=== PATIENT | male | born 1960 | race Caucasian/White ===

== ENCOUNTER 2023-11-21 08:30 | Observation (INO) ==
--- NOTE | 2023-10-31 10:31 | PAT Medication Instructions ---
Medication Instructions Date of Service October 31, 2023 Home Medications Medication Instructions Recorded flash glucose scanning reader #1 ea 07/21/22 (FreeStyle Blanquita 2 [place]) flash glucose sensor (FreeStyle #2 ea 07/29/22 Blanquita 2 Sensor kit) tirzepatide 15 mg/0.5 mL 15 mg (0.5 mL) subcut Q7D #6 mL 03/31/23 subcutaneous pen injector (Mounjaro) metformin 1,000 mg tablet 1,000 mg PO BID 90 days #180 tabs 08/11/23 oxycodone 5 mg tablet 5 mg PO Q8H PRN pain #30 tabs 10/06/23 walker #1 ea 10/12/23 tirzepatide 15 mg/0.5 mL subcutaneous pen injector (Mounjaro) 15 mg (0.5 mL) subcut Q7D metformin 1,000 mg tablet 1,000 mg PO BID oxycodone 5 mg tablet 5 mg PO Q8H PRN Joint Food Supplement 1 tab PO BID atorvastatin 40 mg tablet 40 mg PO HS duloxetine 60 mg capsule,delayed release 60 mg PO QAM empagliflozin 25 mg tablet (Jardiance) 25 mg PO QAM lisinopril 10 mg tablet 10 mg PO HS STOP 7 days before surgery tirzepatide 15 mg/0.5 mL subcutaneous pen injector (Mounjaro) 15 mg (0.5 mL) subcut Q7D STOP 3 days before surgery empagliflozin 25 mg tablet (Jardiance) 25 mg PO QAM STOP taking 2 weeks before surgery (or as soon as possible if surgery is within 2 weeks) Joint Food Supplement 1 tab PO BID DO NOT take the morning of surgery metformin 1,000 mg tablet 1,000 mg PO BID Take morning of surgery With a small sip of water, OTHERWISE NOTHING TO EAT OR DRINK AFTER MIDNIGHT: oxycodone 5 mg tablet 5 mg PO Q8H PRN(if needed) duloxetine 60 mg capsule,delayed release 60 mg PO QAM Take evening before surgery metformin 1,000 mg tablet 1,000 mg PO BID oxycodone 5 mg tablet 5 mg PO Q8H PRN(if needed) atorvastatin 40 mg tablet 40 mg PO HS lisinopril 10 mg tablet 10 mg PO HS Other Notes If you have any questions please call us at [phone] or [phone] or [phone] or [phone]
--- NOTE | 2023-11-07 11:00 | Anesthesiology Consultation ---
Date of Service November 07, 2023 Assessment & Plan (1) Encounter for pre-operative examination: - check BSG am DOS. - Case discussed in detail with Dr. Cruz who advised patient will need cardiology pre-operative evaluation regarding abnormal EKG and new T wave inversion in setting of not well controlled diabetes. Patient made aware, he prefers earliest availability-our team will try [place] cardiology first and loan secretary will then follow-up with patient. He is aware we are also awaiting PCP clearance and surgeon's determination regarding elevated A1c. Surgeon's office made aware of needed cardiology clearance as well. Workload note sent to PCP. - PCP response 11/08/23: "...Thank you for reaching out. I think his diabetes is actually optimized for surgery. His glucose levels have been actually quite good, last month glucose was 139 mg/dl. I think his Hgb a1c of 8.8% may be misleading and may not actually reflect his his accurate glycemic control. He is on significant medication regimen with max dosing of Metformin, Mounjaro, and Jardiance. We did discuss sulfonylurea but I think this would only cause hypoglycemia. I don't think we would see any significant benefit in repeating the Hgb a1c now. I don't think he needs any further evaluation or testing for his Dm2. He is due for urine micro albumin testing this year which he has yet to do, last years was normal. I don't think this would have much consequence in being completed prior to procedure. Thank you for setting up the Cardiology referral..." - tirzepatide instructions: Patient informed at PAT visit to stop 7 days prior to surgery- voiced understanding. Patient advised to check with prescriber to see if alternative diabetic management changes recommended while holding tirzepatide- if so, patient to call back to PAT to update chart and discuss if any further preop medication instructions needed. Chart Review Chart Review: Pending: Refer to Additional Notes / Consult section and Patient seen in Pre Admission Testing Teaching & Discussion Pre-Anesthesia Teaching/Discussion Notes: Instructed NPO after midnight before s urgery, except medications with 15 cc of water. Medication instructions provided according to the PAT guidelines. History Surgery Operation Date: 11/21/23 10:40 Proposed Procedures p Left Total Hip Arthroplasty - Aron Cazares MD Height/Weight Height: 5 ft 8 in Weight: 76.3 kg Allergies Allergy/AdvReac Type Severity Reaction Status Date / Time No Known Allergies Allergy Verified 10/27/23 08:26 Medications Home Medications Medication Instructions Recorded Confirmed Last Taken flash glucose scanning reader #1 ea 07/21/22 10/06/23 Unknown (FreeStyle Blanquita 2 [place]) flash glucose sensor (FreeStyle #2 ea 07/29/22 10/06/23 Unknown Blanquita 2 Sensor kit) tirzepatide 15 mg/0.5 mL 15 mg (0.5 mL) subcut Q7D #6 mL 03/31/23 10/27/23 10/22/23 subcutaneous pen injector (Xavier) metformin 1,000 mg tablet 1,000 mg PO BID 90 days #180 tabs 08/11/23 10/27/23 Unknown oxycodone 5 mg tablet 5 mg PO Q8H PRN pain #30 tabs 10/06/23 10/27/23 Unknown walker #1 ea 10/12/23 Unknown Joint Food Supplement 1 tab PO BID 10/27/23 10/27/23 Unknown atorvastatin 40 mg tablet 40 mg PO HS 10/27/23 10/27/23 Unknown duloxetine 60 mg capsule,delayed 60 mg PO QAM 10/27/23 10/27/23 Unknown release empagliflozin 25 mg tablet 25 mg PO QAM #90 tabs 11/06/23 Unknown (Jardiance) lisinopril 10 mg tablet 10 mg PO HS #90 tabs 11/06/23 Unknown Past Medical History Medical History (Updated 11/07/23 @ 11:09 by Sarai Navarro PA-C) Anxiety Depression Diabetes mellitus, type 2 NIDDM HTN (hypertension) Controlled, stable per pt Patient denies h/o stroke, seizures, heart attack, heart failure, blood clots/DVTs or blood transfusions. Exercise / Class Metabolic Activity II 4-5 Yardwork/Stairs/Walk up hill (denies chest discomfort or shortness of breath with one flight of stairs, ambulates with cane) Past Family History Family History Mother Ovarian cancer Denies family history of Prostate cancer Myocardial infarction Breast cancer Lung cancer Colorectal cancer Hypertension Past Surgical History Surgical History (Updated 11/07/23 @ 11:09 by Sarai Navarro PA-C) H/O removal of cyst Sebaceous Cyst Neck History of eye surgery Removed nail from Left eye >30+ years ago History of hydrocelectomy [facility] left History of repair of rotator cuff Left Hx of colonoscopy Past Anesthesia History No Hx of Anesthesia Complications and No Family Hx of Anesthesia Complications History of PONV No Hx of PONV and No Hx of Motion Sickness Social History Smoking Status: Never smoker Do You Dip or Chew Tobacco: No Hx Alcohol Use: No Hx Substance Use: No substance use type: does not use Review of Systems Patient denies chest pain, shortness of breath, dyspnea on exertion, snoring, witnessed apneas, reflux, fever, chills, cough, wheezing, or palpitations. Physical Exam Vital Signs Vitals BP 108/65 P 98 TEMP 97.7 SP02 95% on RA RESP 18 Physical Patient resting comfortably in chair in no acute distress, alert and oriented, responding appropriately throughout visit Full cervical extension range of motion without pain TMD 3.5 finger breadths Mallampati Score 3 Dentition: several crowns, denies chipped or loose teeth, caps, implants or bridges Lungs: normal respiratory effort. Good air movement, clear throughout to auscultation, no adventitious breath sounds Cardiac: regular rate and rhythm, no murmurs noted Carotid arteries: negative bruit bilat Lab Results Anesthesia Preop Results Results Anesthesia Widget: WBC 7.01 K/ul (4.8-10.8) 11/07/23 Hgb 15.5 g/dl (14.0-18.0) 11/07/23 Hct 45.8 % (42.0-52.0) 11/07/23 Plt 246 K/uL (130-400) 11/07/23 Na 138 mmol/L (136-145) 10/02/23 K 3.6 mmol/L (3.5-5.1) 10/02/23 Cl 103 mmol/L (98-107) 10/02/23 CO2 26 mmol/L (21-32) 10/02/23 BUN 12 mg/dl (6-23) 10/02/23 Creat 0.69 mg/dl (0.6-1.4) 10/02/23 Glucose Level 139 mg/dl (70-99(Fasting)) H 10/02/23 PT 10.2 Seconds (9.0-12.0) 11/07/23 PTT 25 Seconds (21-31) 11/07/23 INR 0.9 (0.9-1.1) 11/07/23 HA1c 8.8 % (4.5-5.6) H 10/02/23 Blood Type O Negative 11/07/23 Antibody Screen NEGATIVE 11/07/23 Testing Laboratory Results Patient declined updating A1c for potential improvement as he notes was recently on vacation. He was advised PCP clearance will be needed in addition to surgeon determination on elevated A1c. Surgeon's office made aware. Electrocardiogram Date: 11/07/23 NSR, rate 84 bpm Inferior infarct, cited on or before 01/10/14 Questionable change in QRS axis T wave inversion now evident in inferior leads vs 11/22/17 EKG Chest X-Ray Date: 11/07/23 No acute chest disease.
--- NOTE | 2023-11-19 20:05 | History & Physical Report ---
Date of Service November 19, 2023 Assessment & Plan (1) Arthritis of left hip: 63-year-old gentleman with advanced left hip DJD. He has progressed significantly despite conservative care. He is ready to have his hip fixed. There is cements of total hip replacement were explained and he understands and desires to proceed. Informed consent was obtained. He had an extensive workup and is got some cardiac tests which are pending. Assuming he is cleared for surgery we will proceed with a total hip replacement. If not he may need surgical/presurgical optimization by the cone picker. Will get the definitive cardiac workup and proceed if cleared for surgery. He is planned to be in the hospital overnight and discharged to home with home health. He will likely need insulin sliding scale coverage in the hospital for his diabetes. (2) Class 1 obesity due to excess calories with serious comorbidity and body mass index (BMI) of 31.0 to 31.9 in adult: (3) Hypertension: (4) Diabetes mellitus, type 2: History of Present Illness Chief Complaint: . Left hip pain Primary Care Provider: Nir Bass DO . The patient is a 63-year-old gentleman referred by my partner Dr. Duran for surgical treatment of the left hip. He is got several history of increasing left hip pain and discomfort is got singly worse over time. He is actually resorted to using a cane to get around due to his pain. He has an intra- articular hip joint injection which helped him for a very brief period of time. He had a bursal injection which did not help at all. Pain is mostly groin pain. He limps all day long. Knees at nighttime pain. He is like to have his hip fixed. Allergies Allergy/AdvReac Type Severity Reaction Status Date / Time No Known Allergies Allergy Verified 11/17/23 08:42 Home Medications Medication Instructions Recorded Confirmed Type flash glucose scanning reader #1 ea 07/21/22 10/06/23 Rx (FreeStyle Blanquita 2 [place]) flash glucose sensor (FreeStyle #2 ea 07/29/22 10/06/23 Rx Blanquita 2 Sensor kit) tirzepatide 15 mg/0.5 mL 15 mg (0.5 mL) subcut Q7D #6 mL 03/31/23 11/17/23 Rx subcutaneous pen injector (Xavier) metformin 1,000 mg tablet 1,000 mg PO BID 90 days #180 tabs 08/11/23 11/17/23 Rx oxycodone 5 mg tablet 5 mg PO Q8H PRN pain #30 tabs 10/06/23 11/17/23 Rx walker #1 ea 10/12/23 Rx Joint Food Supplement 1 tab PO BID 10/27/23 11/17/23 History atorvastatin 40 mg tablet 40 mg PO HS 10/27/23 11/17/23 History duloxetine 60 mg capsule,delayed 60 mg PO QAM 10/27/23 11/17/23 History release empagliflozin 25 mg tablet 25 mg PO QAM #90 tabs 11/06/23 11/17/23 Rx (Jardiance) lisinopril 10 mg tablet 10 mg PO HS #90 tabs 11/06/23 11/17/23 Rx acetaminophen 500 mg tablet 1,000 mg (2 x 500 mg) PO TID pain 11/19/23 Rx (Tylenol Extra Strength) 30 days #180 tabs aspirin 81 mg tablet,delayed 81 mg PO BID 45 days #90 tabs 11/19/23 Rx release (Maxine Low Dose Aspirin) ketorolac 10 mg tablet 10 mg PO Q6 pain 5 days #20 tabs 11/19/23 Rx ondansetron 4 mg disintegrating 4 mg PO Q8 PRN nausea #20 tabs 11/19/23 Rx tablet oxycodone 5 mg tablet 5 - 10 mg (1 - 2 x 5 mg) PO Q6 PRN 11/19/23 Rx pain #40 tabs sennosides 8.6 mg tablet (Senokot) 8.6 mg PO BID prevent constipation 11/19/23 Rx 14 days #28 tabs tamsulosin 0.4 mg capsule (Flomax) 0.4 mg PO DAILY #7 caps 11/19/23 Rx Past Med/Surg History Problem List Encounter for pre-operative examination Arthritis of left hip Hip arthritis Greater trochanteric pain syndrome Class 1 obesity due to excess calories with serious comorbidity and body mass index (BMI) of 31.0 to 31.9 in adult Bilateral hip pain Anxiety and depression Fatigue Diabetic peripheral neuropathy associated with type 2 diabetes mellitus (Chronic) Dysesthesia (Chronic) Foot deformity (Chronic) Loss 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) 12/13/18 DJD (degenerative joint disease) (Chronic 02/05/14) Hypertension (Chronic) Medical History HTN (hypertension) Controlled, stable per pt Anxiety Diabetes mellitus, type 2 NIDDM Depression Surgical History Hx of colonoscopy History of hydrocelectomy [facility] left History of eye surgery Removed nail from Left eye >30+ years ago H/O removal of cyst Sebaceous Cyst Neck History of repair of rotator cuff Left Family History Mother Ovarian cancer Denies family history of Prostate cancer Myocardial infarction Breast cancer Lung cancer Colorectal cancer Hypertension Social History Smoking Status: Never smoker Second Hand Exposure: No; Do You Dip or Chew Tobacco: No; Hx Alcohol Use: No Hx Substance Use: No Preferred Language: Thai Communication Ability: Effective Band Saw Filer Required: No Beliefs That Will Affect Care: None marital status: Current Living Situation: Spouse current occupational status: employed current occupation: [employer] @ [employer] Feels Safe at Home: Yes Diet: regular caffeine: Yes Physical Activity Frequency: 5-6 Times per Week Seatbelt Use: never Sunscreen Use: Yes Assistive Devices: Cane and Glasses Review of Systems All systems reviewed & are unremarkable except as noted in HPI & below. Physical Exam . Physical examination reveals a pleasant middle-age male. Looks in pretty good health. Examination left hip reveal patient walks with use of a cane. He can walk independently but limps significantly. He is about a half a centimeter shorter on the left side compared to the right. Is got pain with any type of hip motion. Very stiff hip with internal rotation of -10. Negative straight leg raise. He is neurologically intact. Constitutional WD/WN, vitals as above Neck trachea midline, no thyromegaly Respiratory normal respiratory effort, lungs clear to auscultation Cardiovascular RRR, no murmur, no edema Gastrointestinal (Abdomen) normal bowel sounds, soft, nontender, no hepatosplenomegaly Results & Data Results & Data Laboratory Results . Diagnostic Findings . X-rays of the left hip were reviewed. Shows advanced left hip DJD. He is got complete loss of superior joint space. Flattening of the femoral head. He is got cystic changes on both sides of the joint. PG Care Time/CCT Total # of Minutes Spent Total Time Spent with Patient: Total time spent is greater than 50% in coordination of care (as documented) at patient's floor/unit and/or counseling patient: Coding Level of Care Code None Diagnoses Arthritis of left hip M16.12 Class 1 obesity due to excess calories with serious comorbidity and body mass index (BMI) of 31.0 to 31.9 in adult E66.09; Z68.31 Primary hypertension I10 Hypertension type: primary hypertension Diabetes mellitus, type 2 E11.9 (3) Hypertension Hypertension type: primary hypertension Qualified Code(s): I10 - Essential (primary) hypertension
[~2023-11-21 08:30] MED LIST: BUPIVACAINE 0.5 % 5 MG/1 ML PF 10ML VIAL ONE
[2023-11-21] MEDS: FAMOTIDINE 20 MG TAB PO SCH (09:03)
[2023-11-21] MEDS: CeleBREX 200 MG CAP PO SCH (09:03)
[2023-11-21] MEDS: LR 500ML BOLUS, THEN 15ML/HR IV SCH (09:03)
[2023-11-21] MEDS: ACETAMINOPHEN 500 MG TAB PO SCH ×2 (09:03→16:05)
[2023-11-21] MEDS: LR 60ML/HR IV SCH (09:03)
[2023-11-21] MEDS: METOCLOPRAMIDE HCL 10 MG TABLET PO SCH (09:04)
--- NOTE | 2023-11-21 09:28 | History & Physical Bridge Note ---
Date of Service November 21, 2023 History & Physical Bridge Note I have examined the patient, reviewed the History & Physical and in the interval since the performance of the History & Physical I have noted the following changes of clinical significance: no changes noted
[2023-11-21] MEDS ORDERED: MIDAZOLAM HCL 1 MG/ML 2ML VIAL ONE (10:14)
[2023-11-21] MEDS ORDERED: fentaNYL citrate PF 100 MCG/2 ML VIAL ONE (10:14)
[2023-11-21] MEDS ORDERED: ATROPINE SULFATE 0.1 MG/ML 10ML SYR IV PRN (10:16)
[2023-11-21] MEDS ORDERED: ePHEDrine sulfate 50 MG/ML AMP IV PRN (10:16)
[2023-11-21] MEDS ORDERED: ONDANSETRON INJ 2 MG/ML 2 ML VIAL IV PRN ×2 (10:16→14:31)
[2023-11-21] MEDS ORDERED: PROPOFOL IV EMULSION 10 MG/ML 20 ML VIAL IV ONE (10:16)
[2023-11-21] MEDS ORDERED: fentaNYL citrate PF 100 MCG/2 ML VIAL IV PRN (10:16)
[2023-11-21] MEDS ORDERED: ONDANSETRON INJ 2 MG/ML 2 ML VIAL ONE (10:16)
[2023-11-21] MEDS: TRANEXAMIC ACID 1,000 MG **IV Pre-op IV SCH (11:13)
[2023-11-21] MEDS: ceFAZolin 2000MG 2,000 MG/15 ML SYR IV SCH (11:26)
[2023-11-21] MEDS ORDERED: PHENYLEPHRINE 100MCG/ML 10ML SYR IV ONE (11:54)
[2023-11-21] MEDS: BUPIVACAINE/EPINEPHRINE 0.5% MPF 1:200,000 30 ML VIAL ONE (12:08)
[2023-11-21] MEDS ORDERED: PHENYLEPHRINE HCL 10 MG/ML VIAL ONE (12:12)
--- NOTE | 2023-11-21 13:03 | Operative Report ---
PG Post Operative Report Pre & Post Diagnosis Operation Date: 11/21/23 10:40 Pre-Op Diagnosis: Left Hip Osteoarthritis Post-Op Diagnosis: Left Hip Osteoarthritis I identified the patient and participated in the time-out.: Yes Procedure Operation Date: 11/21/23 10:40 Actual Procedures p Left Total Hip Arthroplasty, Uncemented(Left) - Aron Cazares MD Surgeon Aron Cazares MD Dictating Machine Mechanic Wayne Monroe PA-C Estimated Blood Loss 150 Findings Consistent with Post-Op Diagnosis Operative findings were advanced left hip arthritis. He had grade 4 [id number] disease the femoral head and acetabulum. He had flattening of the femoral head. Very hypertrophic labrum. Specimens Left femoral head sent for pathology. Anesthesia Type Spinal MAC Complications none Disposition Accompanied Patient To Recovery: No Indications Patient is a 63-year-old gentleman whose had several history of increasing left hip pain and discomfort is gotten markedly worse over the past year. He failed conservative measures. X-rays show progressive advanced left hip arthritis. He elected proceed with total hip arthroplasty. Description of Procedure Operative implants consist of: 1 Biomet G7 size 56 mm acetabular shell. 2. 6.5 cancellous acetabular screws 1 at 35 mm length by 30 mm length. 3. [place] hole tight cooper. 4. Highly cross-linked polyethylene liner with a 56 mm outer diameter and 36 mm inner diameter. 5. DePuy Karaya size 10 KLA femoral stem. 6. +8.5/36 mm ceramic articular ball. The patient was taken the operating, identified, placed on the operating table in the supine position. All conductors were appropriately padded. IV antibiotics fibra anesthesia team. A spinal anesthetic had been implemented holding area. The patient was then placed in the right lateral decubitus position. An axillary roll was placed. A stool Birkett position was used for positioning. Left hip and leg were then prepped and draped in usual sterile fashion. A posterolateral approach to the left hip was then performed to a curvilinear incision centered over the greater trochanter. Sharp dissection was got through subcutaneous tissue down to the IT band gluteal fascia. The IT band gluteal fascia was sized longitudinally in line with skin incision. The underlying greater bursa was excised. The piriformis and external rotators along with the posterior joint capsule were then taken off the posterior aspect the hip as a single layer. Great care was taken throughout the procedure protect the sciatic nerve at all times. Hip was internally rotated and dislocated. A femoral neck osteotomy cut was made with Final Cut about 10 mm above the lesser trochanter. Femoral head was removed and sent for pathology. The femur was retracted anteriorly. Attention drawn the acetabulum. The acetabular labrum was excised. The pulmonary fat was excised. Sequential reaming the acetabular was then performed again with a size 47 and progressing up to a 55. I reamed a little bit with a 56 reamer and then placed a 56 mm G7 acetabular shell in about 40 degrees lateral opening and 20 degrees of anteversion. It was fixed with two 6.5 cancellous acetabular screws. A trial liner was placed. Attention drawn the femur. The proximal femur was done with cookie-cutter followed by canal finder. I then broached beginning with a size 8 and progressing up to a 10. Get excellent fitted to 10. I did not think I could get the 11 broach down. We trialed the hip and the +5 articular ball provide full stability but I thought it with his leg lengths are still little bit short on the side. Therefore elect to use a +8.5 articular ball. The hip was fully stable in full extension and flexion to 90 degrees into rotation over [address] We elect to place these implants. All trial implants were removed. An apex hole tight cooper was placed. Highly cross-linked polyethylene liner was placed. A size 10 KLA femoral stem was impacted in position. A +8.5/36 mm ceramic articular ball was placed. Hip was located once again found to be stable. Attention drawn toward closing. The wound was irrigated with coconuts of pulsatile lavage solution. I did inject locally with 60 cc of half percent Marcaine with epinephrine. The posterior capsule and external rotators then repaired through drill holes in the posterior trochanter with #2 Tycron suture. The IT band gluteal fascia then closed with #1 PDS suture in running fashion. Subcutaneous tissue then closed with 2 layers with a deep layer and 1 Vicryl suture and subcutaneous tissues with 2-0 Dexon suture in a buried interrupted fashion. Skin was closed skin odilia. Leg was then cleaned and dried and sterile dressed with Xeroform, 4 fours, ABD pad and foam tape was applied. The patient then transferred to the recovery room in stable condition. Patient tolerated procedure well and there were no complications. Wayne Pozniak, my physician clinical data assistant, was present for the entire procedure. His assistance was essential and required for appropriate patient positioning, prepping and draping, surgical exposure, performing the technical details of the operation, placement the implants, closure of the wound, and placement of the sterile bandage. I attest to the content of the Intraoperative Record and any orders documented therein. Any exceptions are noted below.
--- NOTE | 2023-11-21 13:06 | Anesthesiology Progress Note ---
Date of Service November 21, 2023 Anesthesia Post Procedure Vital Signs Vital Signs: Temp Pulse Pulse Resp BP Pulse Ox O2 Del Method 11/21/23 13:00 98 H 15 108/46 L 99 Room Air 11/21/23 12:52 36.7 C 100 H 16 108/69 99 Room Air 11/21/23 08:53 36.8 C 81 20 144/76 H 97 Room Air Pain Intensity Left Hip: Pain Intensity: 2 Transfer of Care Handoff Completed per policy Notes Mental Status: alert / awake / arousable and participated in evaluation Patient Amnestic to Procedure: Yes Nausea / Vomiting: adequately controlled Pain: adequately controlled Airway Patency, RR, SpO2: stable & adequate BP & HR: stable & adequate Hydration State: stable & adequate Neuraxial Anesthesia: was administered and sensory block is resolving Anesthetic Complications: no major complications apparent and Pt Satisfied with anesthetic care
--- NOTE | 2023-11-21 13:33 | XRay Report ---
XR hip 1V LT w pelvis CLINICAL HISTORY: IN PACU - Post Surgical TECHNIQUE: 1 view of the left hip and single frontal view of the pelvis were obtained. Comparison: Comparison is made to MRI left hip 09/06/2023 FINDINGS: Patient is status post total hip arthroplasty with expected postsurgical changes including soft tissu e swelling and subcutaneous emphysema. Degenerative changes are seen in right hip and lumbar spine. IMPRESSION: Expected postoperative appearance status post placement of total hip arthroplasty. ACT 112: Negative or not required by law. Electronically signed by: Reggie Grijalva M.D. 11/21/2023 1:31 PM
[2023-11-21] MEDS ORDERED: GLUCOSE 10 TAB/TUBE PO PRN (14:31)
[2023-11-21] MEDS ORDERED: ACETAMINOPHEN 500 MG TAB PO SCH (14:31)
[2023-11-21] MEDS ORDERED: METOCLOPRAMIDE HCL INJ 5 MG/ML 2 ML VIAL IV PRN (14:31)
[2023-11-21] MEDS ORDERED: ALUMINUM/MAGNESIUM SUSP 30 ML UDC PO PRN (14:31)
[2023-11-21] MEDS ORDERED: NALOXONE HCL 0.4 MG/1 ML VIAL/CARP IV PRN (14:31)
[2023-11-21] MEDS ORDERED: GLUCAGON FOR INJ 1 MG VIAL SQ PRN (14:31)
[2023-11-21] MEDS ORDERED: PHARMACY GLYCEMIC MGMT CONSULT PRN (14:31)
[2023-11-21] MEDS ORDERED: GLUCOSE 40% GEL 15 GM TUBE PO PRN (14:31)
[2023-11-21] MEDS ORDERED: MAGNESIUM HYDROXIDE SUSP 30 ML UDC PO PRN (14:31)
[2023-11-21] MEDS ORDERED: HYDROmorphone INJ 0.5 MG/0.5 ML SYR IV PRN (14:31)
[2023-11-21] MEDS ORDERED: DEXTROSE 50% 50 ML SYRINGE IV PRN (14:31)
[2023-11-21] MEDS ORDERED: bisacodyL 10 MG SUPP PR PRN (14:31)
[2023-11-21] MEDS ORDERED: CARBOHYDRATES FOR HYPOGLYCEMIA PO PRN (14:31)
[2023-11-21] MEDS ORDERED: TAMSULOSIN HCL 0.4 MG CAP PO PRN (14:31)
[2023-11-21] MEDS: SODIUM CHLORIDE 0.9% 1,000 ML IV SCH (14:45)
--- NOTE | 2023-11-21 14:51 | Pharmacy Report ---
Pharmacy Glycemic Short Note 2 - Date of Service November 21, 2023 - Glycemic Short BSG Results (Last 24 hours): 11/21/23 11/21/23 09:00 12:53 POC Glucose 187 H 175 H OUTPATIENT ANTIDIABETIC REGIMEN: * Metformin 1 g PO BIDM * Jardiance 25 mg PO daily * Mounjaro 15 mg SC weekly (Sundays) HbA1c: 8.8% (10/02/23) ASSESSMENT: * GH is a 63 year old male POD #0 s/p left total hip arthroplasty * No steroids given in OR, but patient ordered dexamethasone 10 mg IV x 1 on POD #1 * Preop BSG of 187 and postop BSG of 175 mg/dL * Given elevated fasting blood sugar and elevated HbA1c despite multi-modal therapy, will initiate somewhat aggressive SC basal/bolus regimen PLAN FOR INPATIENT GLYCEMIC CONTROL: * Hold outpatient oral diabetes medications * Basal insulin * Lantus 20 units SQ x 1 * Reassess in AM w/ IV dexamethasone * Bolus insulin * NovoLog per scale ACHS or Q6hrs while NPO * Goal Range: Low 110 mg/dL - High 140 mg/dL * Correction Factor: 25 mg/dL/unit * Nutritional / Prandial insulin per carb ratio of 1 unit per 8 grams CHO consumed
[2023-11-21] MEDS: TIRZEPATIDE 15 MG/0.5 ML SQ SCH (14:52)
[2023-11-21] MEDS: LANTUS PER UNIT CHARGE SC ONE (15:00)
[2023-11-21] MEDS: INSULIN ASPART PER UNIT CHARGE SC SCH (15:00)
[2023-11-21] MEDS: ASCORBIC ACID 500 MG TAB PO SCH (16:05)
[2023-11-21] MEDS: ceFAZolin 1000MG 1,000 MG/7.5 ML SYR IV SCH (18:15)
[2023-11-21] MEDS: TRANEXAMIC ACID / 0.7% NACL 1,000 MG/100 ML BAG IV SCH (18:15)
[2023-11-21] MEDS: KETOROLAC TROMETHAMINE 15 MG/ML VIAL IV SCH (18:15)
[2023-11-21] MEDS ORDERED: [UNRECOGNIZED DRUG - OTHER] PO SCH (21:00)
[2023-11-21] MEDS ORDERED: SENNA 8.6 MG TAB PO SCH (21:00)
[2023-11-21] MEDS: DOCUSATE SODIUM 100 MG CAP PO SCH (22:12)
[2023-11-21] MEDS: ATORVASTATIN 40 MG TAB PO SCH (22:12)
[2023-11-21] MEDS: ASPIRIN 81 MG ECTAB PO SCH (22:12)
[2023-11-21] MEDS: SENNA 8.6 MG TAB PO SCH (22:13)
[2023-11-21] MEDS: lisinopril 10 MG TAB PO SCH (22:13)
[2023-11-21 22:56] VITALS: RESP 18
[2023-11-22] MEDS: oxyCODONE HCL IR 5 MG TAB (IMMEDIATE RELEASE) PO PRN (01:46)
[2023-11-22 03:26] VITALS: TEMP 98.4
[2023-11-22 07:22] LABS: Basophils # (auto) 0.04 K/uL (0.00-0.20); Basophils % (auto) 0.5 %; Eosinophils # (auto) 0.11 K/uL (0.00-0.50); Eosinophils % (auto) 1.5 %; Hematocrit (blood only) 39.9 % (42.0-52.0); Hemoglobin 12.6 g/dl (14.0-18.0); Immature Granulocytes # (auto) 0.06 K/uL (0.01-0.20); Immature Granulocytes % (auto) 0.8 %; Lymphocytes # (auto) 1.22 K/uL (1.20-3.40); Lymphocytes % (auto) 16.2 %; Mean Corpuscular Hemoglobin 28.4 pg (25.0-34.0); Mean Corpuscular Hgb Conc 31.6 g/dL (32.0-36.0); Mean Corpuscular Volume 90.1 fL (80.0-100.0); Mean Platelet Volume 9.2 fL (9.4-12.4); Monocytes # (auto) 1.09 K/uL (0.11-0.59); Monocytes % (auto) 14.5 %; Neutrophils % (auto) 66.5 %; Platelet Count 194 K/uL (130-400); RDW Coefficient of Variation 13.5 % (11.5-14.5); RDW Standard Deviation 44.5 fL (36.4-46.3); Red Blood Count 4.43 M/uL (4.70-6.10); White Blood Count 7.52 K/ul (4.8-10.8)
[2023-11-22 07:30] LABS: BUN Creatinine Ratio 17.8 (10-20); Calcium 8.7 mg/dl (8.6-10.3); Creatinine Clr Calc Pharmacy 36.1 ml/min; Est GFR (African American) 112.8 ml/min; Est GFR (Non-African American) 97.3 ml/min; Potassium 3.9 mmol/L (3.5-5.1)
[2023-11-22 07:39] VITALS: O2SAT 95
[2023-11-22] MEDS ORDERED: EMPAGLIFLOZIN 25 MG TAB PO SCH (09:00)
[2023-11-22] MEDS: MULTIVITAMIN TAB PO SCH (09:04)
[2023-11-22] MEDS: dexAMETHasone 10 MG in SYRINGE 0 ML IV SCH (09:04)
[2023-11-22] MEDS: DULoxetine HCL 60 MG CAP PO SCH (09:04)
[2023-11-22] MEDS: TAMSULOSIN HCL 0.4 MG CAP PO SCH (09:04)
[2023-11-22] MEDS: LANTUS PER UNIT CHARGE SC ONE (09:08)
--- NOTE | 2023-11-22 11:11 | Orthopedic Progress Note ---
Date of Service November 22, 2023 Assessment & Plan (1) Status post left hip replacement: Plan: 63-year-old gentleman postop day 1 for left hip replacement. He is doing pretty well. Pains controlled. Therapy seems to be going well. He is neurologically intact. Hips located. Hoping to go home today. Plan: 1. DVT prophylaxis including thigh-high teds, SCDs, aspirin twice daily. 2. PT/OT. Weight-bear as tolerated. Left total hip protocol. 3. Pain control doing okay with current pain regimen. 4. Disposition plan to discharge to home with some home health if he does okay in therapy today. Admission and Anticipated Discharge Date Admission Date: November 21, 2023 Subjective 63-year-old gentleman now postop day 1 from a left total hip replacement. He is doing pretty well. Some moderate amount of pain. No chest pain or shortness of breath. Not feeling dizzy or lightheaded. Physical Exam Physical Exam: Physical exam shows a pleasant middle-age male. He was walking with the physical therapist in the hallway when I visited him today. He is walking well with a walker. Dressing is to his hip is clean dry and intact. Thigh is soft and supple. Leg lengths are equal. He is neurologically intact he can dorsifle x and plantarflex his foot appropriately. Respiratory: normal respiratory effort, lungs clear to auscultation Cardiovascular: RRR, no murmur, no edema Gastrointestinal (Abdomen): normal bowel sounds, soft, nontender, no hepatosplenomegaly Results & Data Vital Signs (Past 12 Hours) Vital Signs Temp Pulse Pulse Resp BP Pulse Ox O2 Del Method 11/22/23 07:38 36.9 C 78 18 111/57 L 95 Room Air 11/22/23 03:25 36.9 C 75 18 107/62 96 Room Air Laboratory Results Hemoglobin is 12.6. Hematocrit is 39.9. Electrolytes are stable.
[2023-11-22 11:18] VITALS: BP 122/66; PULSE 75
== END 2023-11-22 14:06 | disposition home health service (06) ==
LOC: 3E 08:30 → ASU 08:30